=== PATIENT | male | born 1955 | race Caucasian/White ===

== ENCOUNTER → 2017-09-27 | Outpatient (CLI) | payer OTHER ==
[2016-06-06 19:18] VITALS: BP 151/78
[~2017-09-27] MED LIST: HYDR-971 PO
--- NOTE | 2017-09-27 12:34 | CARD ---
APPROVED REPORT EXAM: Two-dimensional and M-mode echocardiogram with Doppler and color Doppler. Other Information Quality : Good INDICATION Mitral Valve Disease 2D DIMENSIONS RVDd2.6 (2.9-3.5cm)Left Atrium(2D)3.6 (1.6-4.0cm) IVSd0.9 (0.7-1.1cm)Aortic Root(2D)3.2 (2.0-3.7cm) LVDd5.0 (3.9-5.9cm)LVOT Diameter2.2 (1.8-2.4cm) PWd0.9 (0.7-1.1cm)LVDs3.3 (2.5-4.0cm) FS (%) 34.1 %SV75.0 ml LVEF(%)62.8 (>50%) Aortic Valve AoV Peak Tristan.162.8cm/sAoV VTI30.5cm AO Peak GR.10.6mmHgLVOT Peak Tristan.129.3cm/s AO Mean GR.6mmHgAVA (VMAX)3.01cm2 LINDA (VTI)3.00cm2 Mitral Valve MV E Ehbznqim55.0cm/sMV DECEL OQWN073cy MV A Ncmqoide30.0cm/sE/A Ratio1.3 Tricuspid Valve TR P. Xgszcdxk101zz/sRAP DEKUKNJD0qoBa TR Peak Gr.51yhLzIZIH41irYq Pulmonary Vein S1 Dykorepl49.6cm/sD2 Phxkfefb23.1cm/s LEFT VENTRICLE The left ventricle is normal size. There is normal left ventricular wall thickness. The left ventricu lar systolic function is normal and the ejection fraction is within normal range. The Ejection Fracti on is 60-65%. There is normal LV segmental wall motion. Transmitral Doppler flow pattern is Grade I-a bnormal relaxation pattern. RIGHT VENTRICLE The right ventricle is normal size. The right ventricular systolic function is normal. ATRIA The left atrium size is normal. The right atrium size is normal. The interatrial septum is intact wit h no evidence for an atrial septal defect or patent foramen ovale as noted on 2-D or Doppler imaging. AORTIC VALVE The aortic valve is normal in structure and function. Doppler and Color Flow revealed no significant aortic regurgitation. There is no significant aortic valvular stenosis. MITRAL VALVE The mitral valve is normal in structure and function. There is no evidence of mitral valve prolapse. There is no mitral valve stenosis. Doppler and Color-flow revealed trace eccentric mitral regurgitati on. TRICUSPID VALVE The tricuspid valve is normal in structure and function. Doppler and Color Flow revealed physiologica l tricuspid regurgitation. The PA pressure was estimated at 35 mmHg. There is no tricuspid valve sten osis. PULMONIC VALVE Doppler and Color Flow revealed trace pulmonic valvular regurgitation. There is no pulmonic valvular stenosis. GREAT VESSELS The aortic root is normal in size. The ascending aorta is mildly dilated at 3.4 cm. The IVC is normal in size and collapses >50% with inspiration. PERICARDIAL EFFUSION There is no evidence of significant pericardial effusion. Critical Notification Critical Value: No <Conclusion> The left ventricular systolic function is normal and the ejection fraction is within normal range. Th e Ejection Fraction is 60-65%. There is normal LV segmental wall motion. Doppler and Color-flow revealed trace eccentric mitral regurgitation. Doppler and Color Flow revealed physiological tricuspid regurgitation. The PA pressure was estimated at 35 mmHg. The ascending aorta is mildly dilated at 3.4 cm.
== END | disposition home or self-care (01) ==
LOC: ECHO 09:45
PROVIDERS: ATTEND Internal Medicine Cardiovascular Disease
DX: I08.1 Rheumatic disorders of both mitral and tricuspid valves (principal)
CPT/HCPCS: 93306

== ENCOUNTER → 2018-09-28 | Outpatient (CLI) | payer OTHER ==
[2016-06-06 19:18] VITALS: BP 151/78
[~2018-09-28] MED LIST changes: +HYDR-3164 PO; -HYDR-971 PO
--- NOTE | 2018-09-28 08:45 | CARD ---
MR#: [id number] Date of Study: 09/28/2018 Ordering Physician: GILMA VALDERRAMA, Referring Physician: GILMA VALDERRAMA, Tech: Darling Wiggins [facility] APPROVED REPORT EXAM: Two-dimensional and M-mode echocardiogram with Doppler and color Doppler. Other Information Quality : GoodHR: 72bpm Rhythm : NSR INDICATION Mitral Valve Disease 2D DIMENSIONS RVDd3.4 (2.9-3.5cm)Left Atrium(2D)4.0 (1.6-4.0cm) IVSd1.6 (0.7-1.1cm)Aortic Root(2D)3.7 (2.0-3.7cm) LVDd3.8 (3.9-5.9cm)LVOT Diameter2.3 (1.8-2.4cm) PWd0.9 (0.7-1.1cm)LVDs2.5 (2.5-4.0cm) FS (%) 35.5 %SV41.1 ml LVEF(%)65.0 (>50%) Aortic Valve AoV Peak Tristan.165.9cm/sAoV VTI36.5cm AO Peak GR.11.0mmHgLVOT Peak Tristan.96.0cm/s AO Mean GR.7mmHgAVA (VMAX)2.45cm2 LINDA (VTI)2.50cm2 Mitral Valve MV E Izjvjmjz11.6cm/sMV E Peak Gr.4mmHg MV DECEL [id number] A Stxedric28.4cm/s MV E Mean Gr.2mmHgE/A Ratio0.9 MV A Xvzcvkba727tw Pulmonary Valve PV Peak Edgzqnkq441.2cm/s Tricuspid Valve TR P. Kmifcyig549zw/sRAP RGWDCIMC1noIf TR Peak Gr.24lvPaSZPH43keXq Pulmonary Vein S1 Bfvkncle09.2cm/sD2 Hsspxgzy59.3cm/s PVa [id number] LEFT VENTRICLE The left ventricle is normal size. Proximal septal thickening is noted. The left ventricular systolic function is normal and the ejection fraction is within normal range. The Ejection Fraction is 60-65% . There is normal LV segmental wall motion. Transmitral Doppler flow pattern is Grade I-abnormal rela xation pattern. RIGHT VENTRICLE The right ventricle is normal size. There is normal right ventricular wall thickness. The right ventr icular systolic function is normal. ATRIA The left atrium is mildly dilated. The right atrium size is normal. The interatrial septum is intact with no evidence for an atrial septal defect or patent foramen ovale as noted on 2-D or Doppler imagi ng. AORTIC VALVE The aortic valve is thickened but opens well. The aortic valve is trileaflet. Doppler and Color Flow revealed no significant aortic regurgitation. There is no significant aortic valvular stenosis. MITRAL VALVE The mitral valve is normal in structure and function. There is no evidence of mitral valve prolapse. There is no mitral valve stenosis. Doppler and Color-flow revealed mild to moderate mitral regurgitat ion. The mitral regurgitant jet is eccentrically directed. TRICUSPID VALVE The tricuspid valve is normal in structure and function. Doppler and Color Flow revealed trace tricus pid regurgitation. There is mild pulmonary hypertension. The PA pressure was estimated at 36 mmHg. Th ere is no tricuspid valve prolapse or vegetation. There is no tricuspid valve stenosis. PULMONIC VALVE Pulmonic valve not well visualized. GREAT VESSELS The aortic root is mildly enlarged. The ascending aorta is Mildly dilated at 3.8 cm PERICARDIAL EFFUSION There is no evidence of significant pericardial effusion. Critical Notification Critical Value: No <Conclusion> The left ventricular systolic function is normal and the ejection fraction is within normal range. Th e Ejection Fraction is 60-65%. There is normal LV segmental wall motion. Doppler and Color-flow revealed mild to moderate mitral regurgitation. The mitral regurgitant jet is eccentrically directed. The ascending aorta is Mildly dilated at 3.8 cm Signed by : Gilma Valderrama, Electronically Approved : 09/28/2018 08:44:32
== END | disposition home or self-care (01) ==
LOC: ECHO 07:51
PROVIDERS: ATTEND Internal Medicine Cardiovascular Disease
DX: I34.0 Nonrheumatic mitral (valve) insufficiency (principal); I27.20 Pulmonary hypertension, unspecified
CPT/HCPCS: 93306

== ENCOUNTER → 2020-10-21 | Outpatient (CLI) | payer BC, OTHER ==
[2016-06-06 19:18] VITALS: BP 151/78
--- NOTE | 2020-10-21 15:00 | CARD ---
MR#: [id number] Date of Study: 10/21/2020 Ordering Physician: GILMA VALDERRAMA, Referring Physician: GILMA VALDERRAMA, Tech: Jessica Saldnaa [facility] APPROVED REPORT EXAM: Two-dimensional and M-mode echocardiogram with Doppler and color Doppler. Other Information Quality : AverageHR: 71bpm Rhythm : NSR INDICATION Murmur RISK FACTORS Hypertension Hyperlipidemia 2D DIMENSIONS RVDd3.7 (2.9-3.5cm)Left Atrium(2D)4.3 (1.6-4.0cm) IVSd1.2 (0.7-1.1cm)Aortic Root(2D)3.4 (2.0-3.7cm) LVDd4.3 (3.9-5.9cm)LVOT Diameter2.2 (1.8-2.4cm) PWd1.1 (0.7-1.1cm)LVDs3.0 (2.5-4.0cm) FS (%) 30.0 %SV49.0 ml LVEF(%)57.5 (>50%) Aortic Valve AoV Peak Tristan.168.0cm/sAoV VTI31.2cm AO Peak GR.11.3mmHgLVOT Peak Tristan.84.7cm/s AO Mean GR.5mmHgAVA (VMAX)1.95cm2 Mitral Valve MV E Baclsxvw26.8cm/sMV DECEL EBQY561su MV A Rwvoxflq24.8cm/sE/A Ratio0.7 Pulmonary Valve PV Peak Kstrkuww850.0cm/s Tricuspid Valve TR P. Mprvnnqr603kt/sTR Peak Gr.27mmHg LEFT VENTRICLE The left ventricle is normal size. There is mild concentric left ventricular hypertrophy. The left ve ntricular systolic function is normal. Esitmated ejection fraction is 60-65% There is normal LV segme ntal wall motion. RIGHT VENTRICLE The right ventricle is normal size. There is normal right ventricular wall thickness. The right ventr icular systolic function is normal. ATRIA The left atrium size is normal. The right atrium size is normal. The interatrial septum is intact wit h no evidence for an atrial septal defect or patent foramen ovale as noted on 2-D or Doppler imaging. AORTIC VALVE The aortic valve is normal in structure and function. Doppler and Color Flow revealed no significant aortic regurgitation. There is no significant aortic valvular stenosis. MITRAL VALVE The mitral valve is normal in structure and function. There is no evidence of mitral valve prolapse. There is no mitral valve stenosis. Doppler and Color-flow revealed mild to moderate mitral regurgitat ion with eccentric anteriorily directed jet. TRICUSPID VALVE The tricuspid valve is normal in structure and function. Doppler and Color Flow revealed trace tricus pid valve regurgitation. Estimated PAP 30 mmHg. PULMONIC VALVE The pulmonary valve is normal in structure and function. Doppler and Color Flow revealed mild pulmoni c valvular regurgitation. GREAT VESSELS The aortic root is normal in size. The ascending aorta is normal in size. The pulmonary artery is nor mal. The IVC is normal in size and collapses >50% with inspiration. PERICARDIAL EFFUSION There is no evidence of significant pericardial effusion. Critical Notification Critical Value: No <Conclusion> The left ventricular systolic function is normal. Esitmated ejection fraction is 60-65% There is normal LV segmental wall motion. Mild to moderate mitral regurgitation with eccentric anteriorily directed jet. Trace tricuspid valve regurgitation. Estimated PAP 30 mmHg. There is no evidence of significant pericardial effusion. Signed by : Wayne Mcgee, Electronically Approved : 10/21/2020 15:00:06
== END ==
LOC: ECHO 07:58
PROVIDERS: ATTEND Internal Medicine Cardiovascular Disease
DX: I08.8 Other rheumatic multiple valve diseases (principal)
CPT/HCPCS: 93306